=== PATIENT | male | born 1990 | race Caucasian/White ===

== ENCOUNTER 2023-04-06 21:36 | Inpatient (IN) | payer MEDICAID ==
[~2023-04-06] VITALS: Ht 170.2 cm; Wt 65.1 kg
[2023-04-06] MEDS ORDERED: MAG HYDROX/ALUMINUM HYD/SIMETH ES 30 ML SUSPENSION UDCUP PO PRN (22:00)
[2023-04-06] MEDS ORDERED: LORazepam 2 MG/ML VIAL IM ONE (22:00)
[2023-04-06] MEDS ORDERED: OLANZapine 5 MG RAPDIS TABLET PO PRN (22:00)
[2023-04-06] MEDS ORDERED: TUBERCULIN, PURIFIED PROTEIN DERIVATIVE 5 TU/0.1 ML SYRINGE ID ONE (22:00)
[2023-04-06] MEDS ORDERED: GuaiFENesin/D-METHORPHAN [SUGAR-FREE] 200-20MG/10 ML SYRUP UDCUP PO PRN (22:00)
[2023-04-06] MEDS ORDERED: MAGNESIUM HYDROXIDE SUSPENSION 30 ML UDCUP PO PRN (22:00)
[2023-04-06] MEDS ORDERED: LORazepam 2 MG TABLET PO PRN (22:00)
[2023-04-06] MEDS ORDERED: ACETAMINOPHEN 325 MG TABLET PO PRN (22:00)
[2023-04-06] MEDS ORDERED: LOPERAMIDE HCL 2 MG CAPSULE PO PRN (22:00)
[2023-04-06] MEDS ORDERED: HALOPERIDOL LACTATE 5 MG/ML VIAL IM ONE (22:00)
[2023-04-06] MEDS ORDERED: PROMETHAZINE HCL 25 MG TABLET PO PRN (22:00)
[2023-04-06] MEDS ORDERED: DiphenhydrAMINE HCL 50 MG/ML VIAL IM ONE (22:00)
[2023-04-06 22:51] LABS: GLUCOMETER DEV NAME(LOC) POC.BV; POC SARS-COV2 AG, FIA NEGATIVE (NEGATIVE)
[2023-04-06] MEDS ORDERED: HALOPERIDOL LACTATE 5 MG/ML VIAL ONE (23:30)
[2023-04-06] MEDS ORDERED: DiphenhydrAMINE HCL 50 MG/ML VIAL ONE (23:30)
[2023-04-06] MEDS ORDERED: LORazepam 2 MG/ML VIAL ONE (23:30)
[2023-04-06 23:49] VITALS: BP 111/58; PULSE 61; RESP 17; TEMP 98.3
[2023-04-07] VITALS (9 sets, daily range): BP systolic 109–128; BP diastolic 61–81; PULSE 61–79; RESP 17–18; TEMP 97.2–98.4; O2SAT 95–98
[2023-04-07] MEDS ORDERED: HALOPERIDOL LACTATE 5 MG/ML VIAL IM ONE
[2023-04-07] MEDS ORDERED: LORazepam 2 MG/ML VIAL IM ONE
[2023-04-07] MEDS ORDERED: DiphenhydrAMINE HCL 50 MG/ML VIAL IM ONE
[2023-04-07] MEDS ORDERED: PNEUMOCOCCAL VACCINE POLYVALENT 0.5 ML SYRINGE [PPSV23] IM. ONE (01:00)
[2023-04-07] MEDS ORDERED: INFLUENZA VIRUS VACCINE QVS 2023-24 (6MO+)/PF 60 MCG/0.5 ML SYRINGE IM. ONE (01:00)
[2023-04-07 08:12] LABS: BASOPHILS % (AUTO) 0.7 % (0.0-2.0); EOSINOPHILS % (AUTO) 2.1 % (1.0-6.0); HEMATOCRIT 40.2 % (41-53); HEMOGLOBIN 14.2 g/dL (13.5-17.5); LYMPHOCYTES # (AUTO) 2.1 K/uL (1.0-4.8); MEAN CORPUSCULAR HEMOGLOBIN 36.6 pg (26.0-34.0); MEAN CORPUSCULAR HGB CONC 35.2 G/dL (31.0-37.0); MEAN CORPUSCULAR VOLUME 104 fL (80-100); MONOCYTES # (AUTO) 0.8 K/uL (0.1-1.0); NEUTROPHILS # (AUTO) 3.6 K/uL (1.8-7.7); NEUTROPHILS % (AUTO) 53.2 % (40.0-70.0); PLATELET COUNT (AUTO) 284 K/uL (150-450); RED BLOOD CELL COUNT(AUTO) 3.87 MIL/uL (4.50-5.90); RED CELL DISTRIBUTION WIDTH 13.9 % (11.5-14.5); WHITE BLOOD COUNT (AUTO) 6.7 K/uL (4.5-11.0)
[2023-04-07 08:19] LABS: HEMOGLOBIN A1C 4.7 % (3.8-5.6)
[2023-04-07 08:29] LABS: ALANINE AMINOTRANSFERASE 21 U/L (12-78); ALBUMIN 3.2 g/dL (3.4-5.0); ALKALINE PHOSPHATASE 86 U/L (46-116); ANION GAP 5 mmol/L (8-16); ASPARTATE AMINOTRANSFERASE 33 U/L (15-37); BILIRUBIN,TOTAL 0.4 mg/dL (0.1-1.0); CALCIUM, TOTAL 7.9 mg/dL (8.8-10.5); CARBON DIOXIDE 29 mmol/L (22-29); CHLORIDE 108 mmol/L (98-107); CHOL/HDL RATIO 1.9 (4.2-7.3); CHOLESTEROL 147 mg/dL (131-200); FREE T4 (FREE THYROXINE) 0.99 ng/dL (0.76-1.46); GLOMERULAR FILTR. RATE CALC > 60 mL/min (>60); GLUCOSE,RANDOM 96 mg/dL (70-110); HDL CHOLESTEROL 76 mg/dL (40-60); LDL CHOL (CALC.) 52 mg/dL (0-130); POTASSIUM 3.8 mmol/L (3.5-5.1); SODIUM SERUM 142 mmol/L (136-145); THYROID STIMULATING HORMONE 2.12 uIU/mL (0.36-3.74); TOTAL PROTEIN, SERUM 6.3 g/dL (6.4-8.2); TRIGLYCERIDES 96 mg/dL (15-150); UREA NITROGEN, BLOOD 16 mg/dL (7-18)
[2023-04-07 08:51] LABS: RBC MORPHOLOGY COMMENT ABNORMAL RBC MORPH
[2023-04-07] MEDS: SULFAMETHOX/TRIMETH DS 800-160 MG/TABLET PO SCH ×2 (09:40→16:47)
[2023-04-07] MEDS: OMEGA-3/DHA/EPA/FISH OIL 1,000 MG CAPSULE PO SCH (09:41)
[2023-04-07] MEDS: THIAMINE 100 MG TABLET PO SCH ×2 (09:41→16:47)
[2023-04-07] MEDS: NALTREXONE HCL 50 MG TABLET PO SCH (09:41)
[2023-04-07] MEDS: FOLIC ACID 1 MG TABLET PO SCH (09:41)
[2023-04-07] MEDS: BACITRACIN 28 GM OINTMENT TP SCH ×2 (09:42→16:47)
[2023-04-07] MEDS: MULTIVITAMINS WITH MINERALS, THERAPEUTIC TABLET PO SCH (09:44)
[2023-04-07] MEDS ORDERED: DIAZEPAM 10 MG TABLET PO PRN (11:00)
[2023-04-07] MEDS: ABACAVIR SULFATE 300 MG TABLET PO SCH (13:01)
[2023-04-07] MEDS: DOLUTEGRAVIR SODIUM 50 MG TABLET PO SCH (13:01)
[2023-04-07] MEDS: ZOLPIDEM TARTRATE 10 MG TABLET PO PRN (20:49)
[2023-04-07] MEDS ORDERED: QUEtiapine FUMARATE 200 MG TABLET PO SCH (21:00)
[2023-04-07] MEDS ORDERED: DIVALPROEX SODIUM 500 MG ER TABLET PO SCH (21:00)
[2023-04-07] MEDS ORDERED: OLANZapine 5 MG RAPDIS TABLET PO SCH (21:00)
[2023-04-08] VITALS (8 sets, daily range): BP systolic 112–126; BP diastolic 62–82; PULSE 62–76; RESP 17–18; TEMP 96–98; O2SAT 96–99
[2023-04-08] MEDS ORDERED: DIAZEPAM 10 MG TABLET PO PRN (07:00)
[2023-04-08] MEDS: ABACAVIR SULFATE 300 MG TABLET PO SCH (08:17)
[2023-04-08] MEDS: DOLUTEGRAVIR SODIUM 50 MG TABLET PO SCH (08:18)
[2023-04-08] MEDS: OMEGA-3/DHA/EPA/FISH OIL 1,000 MG CAPSULE PO SCH (08:18)
[2023-04-08] MEDS: MULTIVITAMINS WITH MINERALS, THERAPEUTIC TABLET PO SCH (08:18)
[2023-04-08] MEDS: NALTREXONE HCL 50 MG TABLET PO SCH (08:19)
[2023-04-08] MEDS: FOLIC ACID 1 MG TABLET PO SCH (08:19)
[2023-04-08] MEDS: SULFAMETHOX/TRIMETH DS 800-160 MG/TABLET PO SCH ×2 (08:19→16:01)
[2023-04-08] MEDS: THIAMINE 100 MG TABLET PO SCH ×2 (08:19→16:01)
[2023-04-08] MEDS: DIAZEPAM 10 MG TABLET PO SCH ×4 (08:19→20:19)
[2023-04-08] MEDS: BACITRACIN 28 GM OINTMENT TP SCH ×2 (08:46→16:05)
[2023-04-08] MEDS: HydrOXYzine PAMOATE 50 MG CAPSULE PO PRN (14:19)
[2023-04-08] MEDS: QUEtiapine FUMARATE 100 MG TABLET PO PRN (14:19)
[2023-04-08] MEDS ORDERED: QUEtiapine FUMARATE 200 MG TABLET PO SCH (21:00)
[2023-04-09] MEDS: OMEGA-3/DHA/EPA/FISH OIL 1,000 MG CAPSULE PO SCH (08:13)
[2023-04-09] MEDS: THIAMINE 100 MG TABLET PO SCH ×2 (08:13→17:17)
[2023-04-09] MEDS: MULTIVITAMINS WITH MINERALS, THERAPEUTIC TABLET PO SCH (08:13)
[2023-04-09] MEDS: ABACAVIR SULFATE 300 MG TABLET PO SCH (08:14)
[2023-04-09] MEDS: DOLUTEGRAVIR SODIUM 50 MG TABLET PO SCH (08:14)
[2023-04-09] MEDS: FOLIC ACID 1 MG TABLET PO SCH (08:14)
[2023-04-09] MEDS: DIAZEPAM 10 MG TABLET PO SCH ×4 (08:14→21:20)
[2023-04-09] MEDS: BACITRACIN 28 GM OINTMENT TP SCH ×2 (08:15→17:55)
[2023-04-09] MEDS: NALTREXONE HCL 50 MG TABLET PO SCH (08:15)
[2023-04-09] MEDS: SULFAMETHOX/TRIMETH DS 800-160 MG/TABLET PO SCH ×2 (08:17→17:17)
[2023-04-09 08:34] VITALS: BP 126/85; PULSE 87; RESP 17; TEMP 97.9; O2SAT 98
[2023-04-09 12:02] VITALS: BP 110/68; PULSE 72; RESP 17; TEMP 98; O2SAT 98
[2023-04-09 20:56] VITALS: BP 121/62; PULSE 67; RESP 16; TEMP 98.7; O2SAT 96
[2023-04-09] MEDS: QUEtiapine FUMARATE 300 MG TABLET PO SCH (21:20)
[2023-04-10] MEDS: QUEtiapine FUMARATE 100 MG TABLET PO PRN (06:38)
[2023-04-10] MEDS ORDERED: DIAZEPAM 5 MG TABLET PO PRN (07:00)
[2023-04-10] MEDS: SULFAMETHOX/TRIMETH DS 800-160 MG/TABLET PO SCH ×2 (08:09→17:12)
[2023-04-10] MEDS: DOLUTEGRAVIR SODIUM 50 MG TABLET PO SCH (08:09)
[2023-04-10] MEDS: OMEGA-3/DHA/EPA/FISH OIL 1,000 MG CAPSULE PO SCH (08:09)
[2023-04-10] MEDS: ABACAVIR SULFATE 300 MG TABLET PO SCH (08:09)
[2023-04-10] MEDS: MULTIVITAMINS WITH MINERALS, THERAPEUTIC TABLET PO SCH (08:10)
[2023-04-10] MEDS: FOLIC ACID 1 MG TABLET PO SCH (08:10)
[2023-04-10] MEDS: THIAMINE 100 MG TABLET PO SCH ×2 (08:10→17:12)
[2023-04-10] MEDS: DIAZEPAM 5 MG TABLET PO SCH ×4 (08:10→21:45)
[2023-04-10] MEDS: NALTREXONE HCL 50 MG TABLET PO SCH (08:10)
[2023-04-10 08:11] VITALS: BP 114/67; PULSE 77; RESP 18; TEMP 97.6; O2SAT 97
[2023-04-10] MEDS: BACITRACIN 28 GM OINTMENT TP SCH ×2 (08:11→17:12)
[2023-04-10 10:48] VITALS: BP 112/68; PULSE 70; RESP 16; TEMP 97.6; O2SAT 98
[2023-04-10 20:51] VITALS: BP 126/66; PULSE 71; RESP 16; TEMP 98.2; O2SAT 97
[2023-04-10] MEDS: QUEtiapine FUMARATE 300 MG TABLET PO SCH (21:46)
[2023-04-11] MEDS ORDERED: DIAZEPAM 5 MG TABLET PO PRN (07:00)
[2023-04-11 08:03] VITALS: BP 131/75; PULSE 75; RESP 18; TEMP 97.7; O2SAT 96
[2023-04-11] MEDS: DOLUTEGRAVIR SODIUM 50 MG TABLET PO SCH (08:05)
[2023-04-11] MEDS: NALTREXONE HCL 50 MG TABLET PO SCH (08:06)
[2023-04-11] MEDS: FOLIC ACID 1 MG TABLET PO SCH (08:06)
[2023-04-11] MEDS: OMEGA-3/DHA/EPA/FISH OIL 1,000 MG CAPSULE PO SCH (08:06)
[2023-04-11] MEDS: ABACAVIR SULFATE 300 MG TABLET PO SCH (08:06)
[2023-04-11] MEDS: THIAMINE 100 MG TABLET PO SCH ×2 (08:06→16:01)
[2023-04-11] MEDS: MULTIVITAMINS WITH MINERALS, THERAPEUTIC TABLET PO SCH (08:06)
[2023-04-11] MEDS: SULFAMETHOX/TRIMETH DS 800-160 MG/TABLET PO SCH ×2 (08:06→16:01)
[2023-04-11] MEDS: BACITRACIN 28 GM OINTMENT TP SCH ×2 (08:08→16:02)
[2023-04-11] MEDS: QUEtiapine FUMARATE 100 MG TABLET PO PRN ×2 (12:38→17:46)
[2023-04-11] MEDS: QUEtiapine FUMARATE 300 MG TABLET PO SCH (20:04)
[2023-04-11 20:20] VITALS: BP 102/62; PULSE 75; RESP 16; TEMP 98; O2SAT 100
[2023-04-11] MEDS: HydrOXYzine PAMOATE 50 MG CAPSULE PO PRN (21:32)
[2023-04-12 08:07] VITALS: BP 114/75; PULSE 86; RESP 18; TEMP 97.8; O2SAT 97
[2023-04-12] MEDS: DOLUTEGRAVIR SODIUM 50 MG TABLET PO SCH (08:08)
[2023-04-12] MEDS: THIAMINE 100 MG TABLET PO SCH ×2 (08:09→16:56)
[2023-04-12] MEDS: MULTIVITAMINS WITH MINERALS, THERAPEUTIC TABLET PO SCH (08:09)
[2023-04-12] MEDS: ABACAVIR SULFATE 300 MG TABLET PO SCH (08:09)
[2023-04-12] MEDS: FOLIC ACID 1 MG TABLET PO SCH (08:09)
[2023-04-12] MEDS: OMEGA-3/DHA/EPA/FISH OIL 1,000 MG CAPSULE PO SCH (08:09)
[2023-04-12] MEDS: SULFAMETHOX/TRIMETH DS 800-160 MG/TABLET PO SCH ×2 (08:09→16:56)
[2023-04-12] MEDS: NALTREXONE HCL 50 MG TABLET PO SCH (08:09)
[2023-04-12] MEDS: BACITRACIN 28 GM OINTMENT TP SCH ×2 (08:10→16:56)
[2023-04-12] MEDS: QUEtiapine FUMARATE 100 MG TABLET PO PRN ×2 (12:25→22:09)
[2023-04-12] MEDS ORDERED: HALOPERIDOL 5 MG TABLET ONE (18:23)
[2023-04-12] MEDS ORDERED: HALOPERIDOL 5 MG TABLET PO ONE (19:00)
[2023-04-12 20:01] VITALS: BP 125/68; PULSE 87; RESP 18; TEMP 97.6; O2SAT 98
[2023-04-12] MEDS: QUEtiapine FUMARATE 300 MG TABLET PO SCH (21:16)
[2023-04-12] MEDS: ZOLPIDEM TARTRATE 10 MG TABLET PO PRN (21:18)
[2023-04-12] MEDS: MELATONIN 5 MG TABLET PO PRN (22:09)
[2023-04-13] MEDS: OMEGA-3/DHA/EPA/FISH OIL 1,000 MG CAPSULE PO SCH (08:08)
[2023-04-13] MEDS: ABACAVIR SULFATE 300 MG TABLET PO SCH (08:08)
[2023-04-13] MEDS: MULTIVITAMINS WITH MINERALS, THERAPEUTIC TABLET PO SCH (08:08)
[2023-04-13] MEDS: THIAMINE 100 MG TABLET PO SCH ×2 (08:08→16:46)
[2023-04-13] MEDS: FOLIC ACID 1 MG TABLET PO SCH (08:08)
[2023-04-13] MEDS: SULFAMETHOX/TRIMETH DS 800-160 MG/TABLET PO SCH ×2 (08:08→16:45)
[2023-04-13] MEDS: DOLUTEGRAVIR SODIUM 50 MG TABLET PO SCH (08:08)
[2023-04-13] MEDS: HALOPERIDOL 5 MG TABLET PO SCH ×3 (08:08→16:46)
[2023-04-13] MEDS: NALTREXONE HCL 50 MG TABLET PO SCH (08:09)
[2023-04-13] MEDS: BACITRACIN 28 GM OINTMENT TP SCH ×2 (08:10→16:46)
[2023-04-13 08:12] VITALS: BP 103/64; PULSE 71; RESP 17; TEMP 97.7; O2SAT 99
[2023-04-13 18:51] VITALS: BP 106/65; PULSE 77; RESP 18
[2023-04-13] MEDS: QUEtiapine FUMARATE 100 MG TABLET PO PRN (18:51)
[2023-04-13 20:05] VITALS: BP 132/90; PULSE 90; RESP 18; TEMP 98.7; O2SAT 97
[2023-04-13] MEDS: QUEtiapine FUMARATE 300 MG TABLET PO SCH (20:33)
[2023-04-13] MEDS: TraZODone HCL 150 MG TABLET PO SCH (20:34)
[2023-04-14 09:12] VITALS: BP 123/73; PULSE 88; RESP 17; TEMP 97.2; O2SAT 100
[2023-04-14] MEDS: OMEGA-3/DHA/EPA/FISH OIL 1,000 MG CAPSULE PO SCH (09:24)
[2023-04-14] MEDS: ABACAVIR SULFATE 300 MG TABLET PO SCH (09:25)
[2023-04-14] MEDS: DOLUTEGRAVIR SODIUM 50 MG TABLET PO SCH (09:27)
[2023-04-14] MEDS: THIAMINE 100 MG TABLET PO SCH ×2 (09:29→16:52)
[2023-04-14] MEDS: NALTREXONE HCL 50 MG TABLET PO SCH (09:29)
[2023-04-14] MEDS: FOLIC ACID 1 MG TABLET PO SCH (09:29)
[2023-04-14] MEDS: HALOPERIDOL 5 MG TABLET PO SCH ×3 (09:29→16:52)
[2023-04-14] MEDS: MULTIVITAMINS WITH MINERALS, THERAPEUTIC TABLET PO SCH (09:29)
[2023-04-14] MEDS: BACITRACIN 28 GM OINTMENT TP SCH ×2 (09:30→16:52)
[2023-04-14] MEDS: QUEtiapine FUMARATE 100 MG TABLET PO PRN ×2 (18:16→22:24)
[2023-04-14] MEDS: TraZODone HCL 150 MG TABLET PO SCH (20:43)
[2023-04-14] MEDS: QUEtiapine FUMARATE 300 MG TABLET PO SCH (20:46)
[2023-04-14 21:07] VITALS: BP 122/81; PULSE 87; RESP 20; TEMP 97.8; O2SAT 97
[2023-04-14 21:31] LABS: GLUCOMETER DEV NAME(LOC) POC.BV; POC SARS-COV2 AG, FIA NEGATIVE (NEGATIVE)
[2023-04-14] MEDS: ZOLPIDEM TARTRATE 10 MG TABLET PO PRN (22:24)
[2023-04-15] MEDS: MELATONIN 5 MG TABLET PO PRN (00:15)
[2023-04-15 08:09] VITALS: BP 118/62; PULSE 87; RESP 16; TEMP 97.3; O2SAT 96
[2023-04-15] MEDS: BACITRACIN 28 GM OINTMENT TP SCH ×2 (09:00→16:43)
[2023-04-15] MEDS: ABACAVIR SULFATE 300 MG TABLET PO SCH (09:16)
[2023-04-15] MEDS: HALOPERIDOL 5 MG TABLET PO SCH ×3 (09:16→16:42)
[2023-04-15] MEDS: OMEGA-3/DHA/EPA/FISH OIL 1,000 MG CAPSULE PO SCH (09:17)
[2023-04-15] MEDS: NALTREXONE HCL 50 MG TABLET PO SCH (09:18)
[2023-04-15] MEDS: THIAMINE 100 MG TABLET PO SCH ×2 (09:23→16:43)
[2023-04-15] MEDS: FOLIC ACID 1 MG TABLET PO SCH (09:23)
[2023-04-15] MEDS: MULTIVITAMINS WITH MINERALS, THERAPEUTIC TABLET PO SCH (09:25)
[2023-04-15] MEDS: DOLUTEGRAVIR SODIUM 50 MG TABLET PO SCH (09:25)
[2023-04-15] MEDS: QUEtiapine FUMARATE 100 MG TABLET PO PRN (18:54)
[2023-04-15] MEDS: TraZODone HCL 150 MG TABLET PO SCH (20:33)
[2023-04-15] MEDS: QUEtiapine FUMARATE 300 MG TABLET PO SCH (20:33)
[2023-04-15 21:13] VITALS: BP 114/70; PULSE 99; RESP 17; TEMP 98.3; O2SAT 97
[2023-04-15] MEDS: ZOLPIDEM TARTRATE 10 MG TABLET PO PRN (22:47)
[2023-04-16] MEDS: DOLUTEGRAVIR SODIUM 50 MG TABLET PO SCH (08:09)
[2023-04-16] MEDS: ABACAVIR SULFATE 300 MG TABLET PO SCH (08:09)
[2023-04-16] MEDS: MULTIVITAMINS WITH MINERALS, THERAPEUTIC TABLET PO SCH (08:10)
[2023-04-16] MEDS: THIAMINE 100 MG TABLET PO SCH ×2 (08:10→16:19)
[2023-04-16] MEDS: FOLIC ACID 1 MG TABLET PO SCH (08:10)
[2023-04-16] MEDS: HALOPERIDOL 5 MG TABLET PO SCH ×3 (08:10→16:19)
[2023-04-16] MEDS: NALTREXONE HCL 50 MG TABLET PO SCH (08:10)
[2023-04-16] MEDS: OMEGA-3/DHA/EPA/FISH OIL 1,000 MG CAPSULE PO SCH (08:10)
[2023-04-16] MEDS: BACITRACIN 28 GM OINTMENT TP SCH ×2 (08:11→16:22)
[2023-04-16 08:37] VITALS: BP 147/87; PULSE 92; RESP 17; TEMP 97.9; O2SAT 97
[2023-04-16 20:06] VITALS: BP 140/89; PULSE 90; RESP 17; TEMP 98.1
[2023-04-16] MEDS: QUEtiapine FUMARATE 300 MG TABLET PO SCH (20:11)
[2023-04-16] MEDS: TraZODone HCL 150 MG TABLET PO SCH (20:11)
[2023-04-16] MEDS: ChlorproMAZINE HCL 100 MG TABLET PO PRN (20:31)
[2023-04-17] MEDS: ABACAVIR SULFATE 300 MG TABLET PO SCH (08:13)
[2023-04-17] MEDS: DOLUTEGRAVIR SODIUM 50 MG TABLET PO SCH (08:13)
[2023-04-17] MEDS: OMEGA-3/DHA/EPA/FISH OIL 1,000 MG CAPSULE PO SCH (08:14)
[2023-04-17] MEDS: MULTIVITAMINS WITH MINERALS, THERAPEUTIC TABLET PO SCH (08:14)
[2023-04-17] MEDS: NALTREXONE HCL 50 MG TABLET PO SCH (08:14)
[2023-04-17] MEDS: HALOPERIDOL 5 MG TABLET PO SCH ×3 (08:14→16:04)
[2023-04-17 08:17] VITALS: BP 119/68; PULSE 92; RESP 18; TEMP 97.8; O2SAT 100
[2023-04-17] MEDS: BACITRACIN 28 GM OINTMENT TP SCH ×2 (08:22→16:04)
[2023-04-17] MEDS: ChlorproMAZINE HCL 100 MG TABLET PO PRN (17:31)
[2023-04-17] MEDS: TraZODone HCL 150 MG TABLET PO SCH (20:17)
[2023-04-17] MEDS: QUEtiapine FUMARATE 300 MG TABLET PO SCH (20:17)
[2023-04-17 22:58] VITALS: BP 116/78; PULSE 86; RESP 18; TEMP 97.2; O2SAT 99
[2023-04-18 08:31] VITALS: BP 114/66; PULSE 91; RESP 16; TEMP 97.6; O2SAT 98
[2023-04-18] MEDS: NALTREXONE HCL 50 MG TABLET PO SCH (09:07)
[2023-04-18] MEDS: ABACAVIR SULFATE 300 MG TABLET PO SCH (09:08)
[2023-04-18] MEDS: DOLUTEGRAVIR SODIUM 50 MG TABLET PO SCH (09:08)
[2023-04-18] MEDS: OMEGA-3/DHA/EPA/FISH OIL 1,000 MG CAPSULE PO SCH (09:09)
[2023-04-18] MEDS: BACITRACIN 28 GM OINTMENT TP SCH ×2 (09:09→16:34)
[2023-04-18] MEDS: MULTIVITAMINS WITH MINERALS, THERAPEUTIC TABLET PO SCH (09:09)
[2023-04-18] MEDS: HALOPERIDOL 5 MG TABLET PO SCH ×3 (09:09→16:34)
[2023-04-18] MEDS ORDERED: HALO5TAB23 PO (10:11)
[2023-04-18] MEDS ORDERED: TRAZ150T80 PO (10:12)
[2023-04-18] MEDS ORDERED: QUET300T2 PO (10:12)
[2023-04-18] MEDS ORDERED: LAMI150T33 PO (10:13)
[2023-04-18] MEDS ORDERED: DOLU50TA PO (10:14)
[2023-04-18] MEDS ORDERED: ABAC1TAB3 PO (10:24)
[2023-04-18] MEDS ORDERED: NALT50TA33 PO (10:27)
[2023-04-18] MEDS: TraZODone HCL 150 MG TABLET PO SCH (20:30)
[2023-04-18] MEDS: QUEtiapine FUMARATE 300 MG TABLET PO SCH (20:30)
[2023-04-18 21:31] VITALS: BP 120/70; PULSE 92; RESP 16; TEMP 97.3; O2SAT 98
[2023-04-19 08:42] VITALS: BP 114/60; PULSE 80; RESP 17; TEMP 98; O2SAT 100
[2023-04-19] MEDS: ABACAVIR SULFATE 300 MG TABLET PO SCH (08:57)
[2023-04-19] MEDS: OMEGA-3/DHA/EPA/FISH OIL 1,000 MG CAPSULE PO SCH (08:57)
[2023-04-19] MEDS: DOLUTEGRAVIR SODIUM 50 MG TABLET PO SCH (08:57)
[2023-04-19] MEDS: MULTIVITAMINS WITH MINERALS, THERAPEUTIC TABLET PO SCH (08:57)
[2023-04-19] MEDS: NALTREXONE HCL 50 MG TABLET PO SCH (08:58)
[2023-04-19] MEDS: BACITRACIN 28 GM OINTMENT TP SCH (08:59)
[2023-04-19] MEDS: HALOPERIDOL 5 MG TABLET PO SCH (08:59)
== END 2023-04-19 11:30 | disposition home or self-care (01) | DRG 750 ==
LOC: B2S 23:44
PROVIDERS: ADMIT Psychiatry & Neurology Psychiatry; ATTEND Psychiatry & Neurology Psychiatry
PROC: GZ56ZZZ Individual Psychotherapy, Supportive (ICD-10-PCS; principal; 2023-04-06)
DX: F25.0 Schizoaffective disorder, bipolar type (principal); I69.354 Hemiplegia and hemiparesis following cerebral infarction affecting left non-dominant side; R45.851 Suicidal ideations; F17.200 Nicotine dependence, unspecified, uncomplicated; F15.10 Other stimulant abuse, uncomplicated; G47.00 Insomnia, unspecified; Z20.822 Contact with and (suspected) exposure to COVID-19; F41.0 Panic disorder [episodic paroxysmal anxiety]; J44.9 Chronic obstructive pulmonary disease, unspecified; Z55.9 Problems related to education and literacy, unspecified; Z59.9 Problem related to housing and economic circumstances, unspecified; Z63.9 Problem related to primary support group, unspecified; Z65.3 Problems related to other legal circumstances; Z81.8 Family history of other mental and behavioral disorders; Z91.148 Patient's other noncompliance with medication regimen for other reason; Z99.3 Dependence on wheelchair; Z56.0 Unemployment, unspecified
CPT/HCPCS: 80053; 80061; 83036; 84153; 84439; 84443; 85025; 86592; J1200; J1630; J2060; Q9967

== ENCOUNTER 2023-05-10 11:05 | Inpatient (IN) | payer MEDICAID, OTHER ==
[~2023-05-10] VITALS: Ht 170.2 cm; Wt 64.4 kg
[~2023-05-10 11:05] MED LIST: ABAC1TAB15 PO; HALO5TAB23 PO; NALT50TA33 PO; QUET300T2 PO; TRAZ150T80 PO
[2023-05-10] MEDS ORDERED: ZOLPIDEM TARTRATE 10 MG TABLET PO PRN (11:30)
[2023-05-10 11:49] LABS: BASOPHILS % (AUTO) 1.1 % (0.0-2.0); EOSINOPHILS % (AUTO) 2.9 % (1.0-6.0); HEMATOCRIT 40.8 % (41-53); HEMOGLOBIN 14.2 g/dL (13.5-17.5); LYMPHOCYTES # (AUTO) 1.8 K/uL (1.0-4.8); MEAN CORPUSCULAR HEMOGLOBIN 35.7 pg (26.0-34.0); MEAN CORPUSCULAR HGB CONC 34.8 G/dL (31.0-37.0); MEAN CORPUSCULAR VOLUME 103 fL (80-100); MONOCYTES # (AUTO) 0.8 K/uL (0.1-1.0); NEUTROPHILS # (AUTO) 4.5 K/uL (1.8-7.7); PLATELET COUNT (AUTO) 248 K/uL (150-450); RED BLOOD CELL COUNT(AUTO) 3.98 MIL/uL (4.50-5.90); RED CELL DISTRIBUTION WIDTH 12.7 % (11.5-14.5); WHITE BLOOD COUNT (AUTO) 7.3 K/uL (4.5-11.0)
[2023-05-10 12:04] LABS: ANION GAP 7 mmol/L (8-16); CALCIUM, TOTAL 8.5 mg/dL (8.8-10.5); CARBON DIOXIDE 28 mmol/L (22-29); CHLORIDE 106 mmol/L (98-107); CREATININE 1.04 mg/dL (0.60-1.30); GLOMERULAR FILTR. RATE CALC > 60 mL/min (>60); GLUCOSE,RANDOM 89 mg/dL (70-110); POTASSIUM 4.4 mmol/L (3.5-5.1); SODIUM SERUM 141 mmol/L (136-145); UREA NITROGEN, BLOOD 14 mg/dL (7-18)
[2023-05-10 12:10] LABS: ALANINE AMINOTRANSFERASE 20 U/L (12-78); ALBUMIN 3.6 g/dL (3.4-5.0); ALKALINE PHOSPHATASE 87 U/L (46-116); ASPARTATE AMINOTRANSFERASE 19 U/L (15-37); BILIRUBIN,TOTAL 0.4 mg/dL (0.1-1.0); TOTAL PROTEIN, SERUM 6.6 g/dL (6.4-8.2)
[2023-05-10] MEDS: OLANZapine 5 MG RAPDIS TABLET PO PRN (12:14)
[2023-05-10] MEDS: LORazepam 2 MG TABLET PO PRN (12:14)
[2023-05-10 12:16] LABS: ALCOHOL, BLOOD (SERUM) < 3 mg/dL (0-10)
[2023-05-10 12:17] LABS: COVID AG,FIA SOURCE NASAL SWAB
[2023-05-10 12:37] LABS: SARS-COV2 (COVID) ANTIGEN,FIA Negative (Negative)
[2023-05-11 00:33] VITALS: BP 131/88; PULSE 63; RESP 17; TEMP 97.4
[2023-05-11 00:42] VITALS: BP 131/88; PULSE 63; RESP 17; TEMP 97.4
[2023-05-11] MEDS ORDERED: INFLUENZA VIRUS VACCINE QVS 2023-24 (6MO+)/PF 60 MCG/0.5 ML SYRINGE IM. ONE (02:15)
[2023-05-11 09:14] VITALS: PULSE 100; RESP 17; TEMP 97.5; O2SAT 98
[2023-05-11 21:02] VITALS: BP 122/68; PULSE 96; RESP 18; TEMP 97.5; O2SAT 98
[2023-05-12 08:37] VITALS: BP 105/81; PULSE 85; RESP 17; TEMP 98.4; O2SAT 96
[2023-05-12] MEDS: LORazepam 2 MG TABLET PO PRN (10:53)
[2023-05-12] MEDS: OLANZapine 5 MG RAPDIS TABLET PO PRN (10:55)
[2023-05-12] MEDS: ABACAVIR SULFATE 300 MG TABLET PO SCH (16:15)
[2023-05-12] MEDS: DOLUTEGRAVIR SODIUM 50 MG TABLET PO SCH (16:20)
[2023-05-12 20:19] VITALS: BP 126/74; PULSE 95; RESP 18; TEMP 97.6; O2SAT 98
[2023-05-12] MEDS: TraZODone HCL 150 MG TABLET PO SCH (20:41)
[2023-05-12] MEDS: QUEtiapine FUMARATE 200 MG TABLET PO SCH (20:42)
[2023-05-13] MEDS: ABACAVIR SULFATE 300 MG TABLET PO SCH (08:48)
[2023-05-13] MEDS: DOLUTEGRAVIR SODIUM 50 MG TABLET PO SCH (08:48)
[2023-05-13 09:16] VITALS: BP 116/83; PULSE 98; RESP 17; TEMP 98.5; O2SAT 99
[2023-05-13 20:07] VITALS: BP 119/81; PULSE 90; RESP 17; TEMP 98.7; O2SAT 99
[2023-05-13] MEDS: QUEtiapine FUMARATE 200 MG TABLET PO SCH (20:46)
[2023-05-13] MEDS: TraZODone HCL 150 MG TABLET PO SCH (20:46)
[2023-05-14] MEDS: DOLUTEGRAVIR SODIUM 50 MG TABLET PO SCH (09:12)
[2023-05-14] MEDS: ABACAVIR SULFATE 300 MG TABLET PO SCH (09:12)
[2023-05-14 09:15] VITALS: BP 134/76; PULSE 87; RESP 16; TEMP 96.1; O2SAT 100
[2023-05-14 20:05] VITALS: BP 120/77; PULSE 78; RESP 20; TEMP 98.4; O2SAT 100
[2023-05-14] MEDS: TraZODone HCL 150 MG TABLET PO SCH (20:16)
[2023-05-14] MEDS: QUEtiapine FUMARATE 200 MG TABLET PO SCH (20:16)
[2023-05-15] MEDS: DOLUTEGRAVIR SODIUM 50 MG TABLET PO SCH (08:10)
[2023-05-15] MEDS: ABACAVIR SULFATE 300 MG TABLET PO SCH (08:10)
[2023-05-15 08:44] VITALS: BP 103/62; PULSE 67; RESP 17; TEMP 97.7; O2SAT 100
[2023-05-15 20:00] VITALS: BP 124/63; PULSE 70; RESP 18; TEMP 98.3; O2SAT 98
[2023-05-15] MEDS: TraZODone HCL 150 MG TABLET PO SCH (20:04)
[2023-05-15] MEDS: QUEtiapine FUMARATE 200 MG TABLET PO SCH (20:04)
[2023-05-16 08:11] VITALS: BP 141/80; PULSE 86; RESP 17; TEMP 98; O2SAT 100
[2023-05-16] MEDS: DOLUTEGRAVIR SODIUM 50 MG TABLET PO SCH (08:34)
[2023-05-16] MEDS: MULTIVITAMINS, THERAPEUTIC TABLET PO SCH (08:35)
[2023-05-16] MEDS: ABACAVIR SULFATE 300 MG TABLET PO SCH (08:35)
[2023-05-16] MEDS: QUEtiapine FUMARATE 200 MG TABLET PO SCH (21:08)
[2023-05-16] MEDS: TraZODone HCL 150 MG TABLET PO SCH (21:08)
[2023-05-16 21:25] VITALS: BP 119/73; PULSE 74; RESP 18; TEMP 98; O2SAT 98
[2023-05-17] MEDS: DOLUTEGRAVIR SODIUM 50 MG TABLET PO SCH (08:27)
[2023-05-17] MEDS: ABACAVIR SULFATE 300 MG TABLET PO SCH (08:27)
[2023-05-17] MEDS: MULTIVITAMINS, THERAPEUTIC TABLET PO SCH (08:28)
[2023-05-17 08:36] VITALS: BP 117/65; PULSE 83; RESP 17; TEMP 97; O2SAT 98
[2023-05-17] MEDS: QUEtiapine FUMARATE 200 MG TABLET PO SCH (20:12)
[2023-05-17] MEDS: TraZODone HCL 150 MG TABLET PO SCH (20:12)
[2023-05-17 20:14] VITALS: BP 116/76; PULSE 93; RESP 18; TEMP 96.8; O2SAT 96
[2023-05-18] MEDS: DOLUTEGRAVIR SODIUM 50 MG TABLET PO SCH (08:35)
[2023-05-18] MEDS: MULTIVITAMINS, THERAPEUTIC TABLET PO SCH (08:35)
[2023-05-18] MEDS: ABACAVIR SULFATE 300 MG TABLET PO SCH (08:35)
[2023-05-18 10:42] VITALS: BP 111/74; PULSE 83; RESP 16; TEMP 97.6; O2SAT 97
[2023-05-18 20:21] VITALS: BP 115/86; PULSE 86; RESP 17; TEMP 97.9
[2023-05-18] MEDS: TraZODone HCL 150 MG TABLET PO SCH (20:33)
[2023-05-18] MEDS ORDERED: QUEtiapine FUMARATE 300 MG TABLET PO SCH (21:00)
[2023-05-19 08:11] VITALS: BP 120/76; PULSE 90; RESP 17; TEMP 98.4; O2SAT 99
[2023-05-19] MEDS: MULTIVITAMINS, THERAPEUTIC TABLET PO SCH (08:48)
[2023-05-19] MEDS: ABACAVIR SULFATE 300 MG TABLET PO SCH (08:49)
[2023-05-19] MEDS: DOLUTEGRAVIR SODIUM 50 MG TABLET PO SCH (08:49)
[2023-05-19] MEDS: TraZODone HCL 150 MG TABLET PO SCH (20:37)
[2023-05-19] MEDS: MELATONIN 5 MG TABLET PO SCH (20:40)
[2023-05-19] MEDS ORDERED: QUEtiapine FUMARATE 200 MG TABLET PO SCH (21:00)
[2023-05-19 21:25] VITALS: BP 111/77; PULSE 81; RESP 18; TEMP 97.9; O2SAT 96
[2023-05-20] MEDS: NALTREXONE HCL 50 MG TABLET PO SCH (08:34)
[2023-05-20] MEDS: OMEGA-3/DHA/EPA/FISH OIL 1,000 MG CAPSULE PO SCH (08:34)
[2023-05-20] MEDS: OLANZapine 5 MG RAPDIS TABLET PO PRN (08:35)
[2023-05-20] MEDS: ABACAVIR SULFATE 300 MG TABLET PO SCH (08:35)
[2023-05-20] MEDS: DOLUTEGRAVIR SODIUM 50 MG TABLET PO SCH (08:35)
[2023-05-20] MEDS: MULTIVITAMINS, THERAPEUTIC TABLET PO SCH (08:38)
[2023-05-20 09:04] VITALS: BP 103/77; PULSE 76; RESP 16; TEMP 97.4; O2SAT 99
[2023-05-20] MEDS: MELATONIN 5 MG TABLET PO SCH (20:32)
[2023-05-20] MEDS: TraZODone HCL 150 MG TABLET PO SCH (20:32)
[2023-05-20 21:03] VITALS: BP 132/73; PULSE 67; RESP 18; TEMP 97.9; O2SAT 97
[2023-05-21 08:16] VITALS: BP 109/61; PULSE 83; RESP 16; TEMP 98.1; O2SAT 99
[2023-05-21] MEDS: MULTIVITAMINS, THERAPEUTIC TABLET PO SCH (09:10)
[2023-05-21] MEDS: OMEGA-3/DHA/EPA/FISH OIL 1,000 MG CAPSULE PO SCH (09:10)
[2023-05-21] MEDS: DOLUTEGRAVIR SODIUM 50 MG TABLET PO SCH (09:10)
[2023-05-21] MEDS: OLANZapine 5 MG RAPDIS TABLET PO SCH ×4 (09:10→20:28)
[2023-05-21] MEDS: ABACAVIR SULFATE 300 MG TABLET PO SCH (09:11)
[2023-05-21] MEDS: NALTREXONE HCL 50 MG TABLET PO SCH (09:19)
[2023-05-21] MEDS: MELATONIN 5 MG TABLET PO SCH (20:28)
[2023-05-21] MEDS: TraZODone HCL 150 MG TABLET PO SCH (20:28)
[2023-05-21 22:39] VITALS: BP 118/72; PULSE 63; RESP 18; TEMP 98; O2SAT 100
[2023-05-22 08:42] VITALS: BP 119/75; PULSE 94; RESP 17; TEMP 97.3; O2SAT 99
[2023-05-22] MEDS: NALTREXONE HCL 50 MG TABLET PO SCH (08:44)
[2023-05-22] MEDS: OLANZapine 5 MG RAPDIS TABLET PO SCH ×2 (08:44→13:21)
[2023-05-22] MEDS: OMEGA-3/DHA/EPA/FISH OIL 1,000 MG CAPSULE PO SCH (08:44)
[2023-05-22] MEDS: MULTIVITAMINS, THERAPEUTIC TABLET PO SCH (08:44)
[2023-05-22] MEDS: ABACAVIR SULFATE 300 MG TABLET PO SCH (08:45)
[2023-05-22] MEDS: DOLUTEGRAVIR SODIUM 50 MG TABLET PO SCH (08:45)
[2023-05-22] MEDS: MELATONIN 5 MG TABLET PO SCH (20:08)
[2023-05-22] MEDS: TraZODone HCL 150 MG TABLET PO SCH (20:08)
[2023-05-22] MEDS: OLANZapine 10 MG RAPDIS TABLET PO SCH (20:09)
[2023-05-22 21:35] VITALS: BP 134/70; PULSE 96; RESP 18; TEMP 97.5; O2SAT 87
[2023-05-23 08:11] VITALS: BP 109/64; PULSE 72; RESP 18; TEMP 97.7; O2SAT 99
[2023-05-23] MEDS: OMEGA-3/DHA/EPA/FISH OIL 1,000 MG CAPSULE PO SCH (08:47)
[2023-05-23] MEDS: DOLUTEGRAVIR SODIUM 50 MG TABLET PO SCH (08:47)
[2023-05-23] MEDS: ABACAVIR SULFATE 300 MG TABLET PO SCH (08:47)
[2023-05-23] MEDS: MULTIVITAMINS, THERAPEUTIC TABLET PO SCH (08:47)
[2023-05-23] MEDS: NALTREXONE HCL 50 MG TABLET PO SCH (08:47)
[2023-05-23] MEDS: OLANZapine 5 MG RAPDIS TABLET PO PRN (14:15)
[2023-05-23 20:06] VITALS: BP 111/62; PULSE 70; RESP 17; TEMP 97.5; O2SAT 98
[2023-05-23] MEDS: OLANZapine 10 MG RAPDIS TABLET PO SCH (20:22)
[2023-05-23] MEDS: MELATONIN 5 MG TABLET PO SCH (20:22)
[2023-05-23] MEDS: TraZODone HCL 150 MG TABLET PO SCH (20:22)
[2023-05-24] MEDS: ABACAVIR SULFATE 300 MG TABLET PO SCH (08:18)
[2023-05-24] MEDS: DOLUTEGRAVIR SODIUM 50 MG TABLET PO SCH (08:18)
[2023-05-24] MEDS: NALTREXONE HCL 50 MG TABLET PO SCH (08:19)
[2023-05-24] MEDS: MULTIVITAMINS, THERAPEUTIC TABLET PO SCH (08:19)
[2023-05-24] MEDS: OMEGA-3/DHA/EPA/FISH OIL 1,000 MG CAPSULE PO SCH (08:19)
[2023-05-24 09:15] VITALS: BP 127/85; PULSE 73; RESP 18; TEMP 97.5; O2SAT 99
[2023-05-24] MEDS: OLANZapine 5 MG RAPDIS TABLET PO PRN (11:06)
[2023-05-24] MEDS: LORazepam 2 MG TABLET PO PRN (13:15)
[2023-05-24 20:09] VITALS: BP 122/71; PULSE 100; RESP 18; TEMP 98; O2SAT 99
[2023-05-24] MEDS: TraZODone HCL 150 MG TABLET PO SCH (20:23)
[2023-05-24] MEDS: MELATONIN 5 MG TABLET PO SCH (20:23)
[2023-05-24] MEDS: OLANZapine 10 MG RAPDIS TABLET PO SCH (20:24)
[2023-05-25 08:30] VITALS: BP 126/71; PULSE 99; RESP 17; TEMP 98.9; O2SAT 97
[2023-05-25] MEDS: DOLUTEGRAVIR SODIUM 50 MG TABLET PO SCH (09:23)
[2023-05-25] MEDS: ABACAVIR SULFATE 300 MG TABLET PO SCH (09:23)
[2023-05-25] MEDS: MULTIVITAMINS, THERAPEUTIC TABLET PO SCH (09:24)
[2023-05-25] MEDS: OMEGA-3/DHA/EPA/FISH OIL 1,000 MG CAPSULE PO SCH (09:24)
[2023-05-25] MEDS: NALTREXONE HCL 50 MG TABLET PO SCH (09:24)
[2023-05-25] MEDS ORDERED: OMEG-135 PO (14:36)
[2023-05-25] MEDS ORDERED: NALT50TA33 PO (14:36)
[2023-05-25] MEDS ORDERED: MELA5TAB40 PO (14:36)
[2023-05-25] MEDS ORDERED: TRAZ-283 PO (14:36)
[2023-05-25] MEDS ORDERED: OLAN10TA26 PO (14:36)
== END 2023-05-25 17:12 | disposition home or self-care (01) | DRG 750 ==
LOC: EMS 11:05 → B2S 18:21
PROVIDERS: ADMIT Psychiatry & Neurology Psychiatry; ATTEND Psychiatry & Neurology Psychiatry
PROC: GZHZZZZ Group Psychotherapy (ICD-10-PCS; principal; 2023-05-25)
PROC: GZ51ZZZ Individual Psychotherapy, Behavioral (ICD-10-PCS; 2023-05-25)
DX: F25.0 Schizoaffective disorder, bipolar type (principal); R45.851 Suicidal ideations; I69.354 Hemiplegia and hemiparesis following cerebral infarction affecting left non-dominant side; F41.9 Anxiety disorder, unspecified; Z20.822 Contact with and (suspected) exposure to COVID-19; F51.04 Psychophysiologic insomnia; F19.10 Other psychoactive substance abuse, uncomplicated; Z91.148 Patient's other noncompliance with medication regimen for other reason; Z91.199 Patient's noncompliance with other medical treatment and regimen due to unspecified reason; Z79.899 Other long term (current) drug therapy
CPT/HCPCS: 80053; 85025; 87081; 99285; G0480; Q9967